=== PATIENT | female | born 2000 | race Caucasian/White ===

== ENCOUNTER → 2021-11-10 | Outpatient (CLI) | payer OTHER ==
[2021-11-10 13:22] LABS: HEMATOCRIT 32.6 % (36.0-47.0); HEMOGLOBIN 10.4 g/dl (12.0-15.5); MEAN CORPUSCULAR HEMOGLOBIN 30.6 pg (27.0-33.0); MEAN CORPUSCULAR HGB CONC 31.9 g/dl (32.0-36.5); MEAN CORPUSCULAR VOLUME 95.9 fl (80.0-96.0); PLATELET COUNT, AUTOMATED 187 10^3/uL (150-450); WHITE BLOOD COUNT 9.2 10^3/uL (4.0-10.0)
== END ==
LOC: M LAB 11:36
PROVIDERS: ATTEND Advanced Practice Midwife
DX: Z34.02 Encounter for supervision of normal first pregnancy, second trimester (principal)

== ENCOUNTER 2021-12-28 11:50 | Outpatient (CLI) | payer OTHER ==
[~2021-12-28] VITALS: Ht 157.5 cm; Wt 73.4 kg
[2021-12-28 12:18] VITALS: BP 119/69
[2021-12-28] MEDS ORDERED: PRENTAB9 PO (12:21)
[2021-12-28] MEDS ORDERED: HOME MED LIST COMPLETE! XX SCH (12:25)
[2021-12-28 13:43] VITALS: BP 108/58
== END 2021-12-28 13:42 | disposition home or self-care (01) ==
LOC: M LDO 11:50
PROVIDERS: ATTEND Obstetrics & Gynecology
DX: O60.03 Preterm labor without delivery, third trimester (principal); O26.893 Other specified pregnancy related conditions, third trimester; M54.50 Low back pain, unspecified; Z3A.34 34 weeks gestation of pregnancy
CPT/HCPCS: 59025; G0463

== ENCOUNTER → 2022-01-06 | Outpatient (REF) | payer OTHER ==
[~2022-01-06] MED LIST: PRENTAB9 PO
== END ==
LOC: M LAB REF 16:19
PROVIDERS: ATTEND Obstetrics & Gynecology
DX: Z34.03 Encounter for supervision of normal first pregnancy, third trimester (principal)

== ENCOUNTER → 2022-01-21 | Outpatient (CLI) | payer OTHER ==
[2022-01-21 14:49] LABS: BASO % 0.2 % (0.0-1.0); EOS % 0.1 % (0.0-3.0); HEMATOCRIT 32.3 % (36.0-47.0); HEMOGLOBIN 10.4 g/dl (12.0-15.5); LYMPH # 1.5 10^3/uL (1.5-5.0); MEAN CORPUSCULAR HEMOGLOBIN 29.6 pg (27.0-33.0); MEAN CORPUSCULAR HGB CONC 32.2 g/dl (32.0-36.5); MONO # 0.6 10^3/uL (0.0-0.8); MONO % 6.5 % (2.0-8.0); NEUTROPHILS % 76.3 % (36.0-66.0); PLATELET COUNT, AUTOMATED 133 10^3/uL (150-450); RED BLOOD COUNT 3.51 10^6/uL (4.00-5.40); WHITE BLOOD COUNT 9.2 10^3/uL (4.0-10.0)
[2022-01-21 15:14] LABS: ALT/SGPT 15 U/L (12-78); BILIRUBIN,TOTAL 0.2 MG/DL (0.2-1.0); CREATININE FOR GFR 0.53 MG/DL (0.55-1.30); GLOMERULAR FILTRATION RATE > 60.0 (>60); LDH LACTATE DEHYDROGENASE 191 U/L (84-246); URIC ACID 3.7 MG/DL (2.6-6.0)
[2022-01-21 15:26] LABS: CREATININE, URINE 37.7 MG/DL; URINE TOTAL PROTEIN 9.7 MG/DL (0-12)
[2022-01-21 17:27] LABS: CREATININE 24 HOUR, URINE 938.7 MG/24HR (600-1800); TOTAL PROTEIN 24 HOUR URINE 241.5 MG/24HR (50-150)
== END ==
LOC: M LAB 14:19
PROVIDERS: ATTEND Advanced Practice Midwife
DX: O13.3 Gestational [pregnancy-induced] hypertension without significant proteinuria, third trimester (principal); Z3A.00 Weeks of gestation of pregnancy not specified

== ENCOUNTER 2022-01-24 21:19 | Outpatient (CLI) | payer OTHER ==
[~2022-01-24] VITALS: Ht 154.9 cm; Wt 77.2 kg
[2022-01-24 21:45] VITALS: BP 111/81
[2022-01-24 22:08] VITALS: BP 118/82
[2022-01-24] MEDS ORDERED: ACETAMINOPHEN 500 MG TAB PO ONE (22:15)
== END 2022-01-24 22:33 | disposition home or self-care (01) ==
LOC: M LDO 21:19
PROVIDERS: ATTEND Advanced Practice Midwife
DX: O26.893 Other specified pregnancy related conditions, third trimester (principal); R51.9 Headache, unspecified; Z3A.38 38 weeks gestation of pregnancy
CPT/HCPCS: 59025; G0378; G0463